=== PATIENT | male | born 1950 | race Caucasian/White ===

== ENCOUNTER 2020-02-16 08:51 | Emergency (ER) | payer MEDICARE, SELFPAY ==
[2020-02-16 09:43] VITALS: BP 163/95; PULSE 71; RESP 18; TEMP 36.9; O2SAT 99; BMI 23.5
--- NOTE | 2020-02-16 09:47 | ED.EAR ---
HPI - Ear Problem General Chief complaint: Ear Problems Stated complaint: facial swelling and rt ear pain Time Seen by Provider: 02/16/20 09:39 Source: patient Mode of arrival: ambulatory Limitations: no limitations History of Present Illness HPI Narrative: 70-year-old male here with right ear pain, decreased hearing x1 week. Trying [id number] wax softeners with continued symptoms. MD Complaint: ear pain and decreased hearing Location: right ear Duration: intermittent Severity: mild Relieving factors: nothing Exacerbating factors: nothing Discharge from ear: no Treatment prior to arrival: none Related Data Allergies Allergy/AdvReac Type Severity Reaction Status Date / Time No Known Allergies Allergy Verified 02/16/20 09:45 [No Known Allergies*] Review of Systems Review of Systems: Yes all other systems are reviewed and are negative Constitutional: Constitutional: Reports no additional constitutional complaints, Denies body ache(s), Denies chills, Denies fever(s), Denies headache(s) and Denies weakness Eyes: Eyes: Reports no additional eye complaints and Denies change in vision ENT: Reports system reviewed and no additional complaints, except as documented, Denies dizziness, Reports otalgia, Denies headache(s), Reports hearing loss, Denies nasal congestion, Denies nasal discharge and Denies neck pain Cardiovascular: Cardiovascular: Reports no additional cardiovascular complaints, Denies chest pain, Denies leg edema and Denies dyspnea Respiratory: Respiratory: Reports no additional respiratory complaints, Denies cough and Denies dyspnea Gastrointestinal: Gastrointestinal: Reports no additional gastrointestinal complaints, Denies abdominal pain, Denies diarrhea, Denies nausea and Denies vomiting Genitourinary: Genitourinary: Denies urinary incontinence Musculoskeletal: Musculoskeletal: Reports no additional musculoskeletal complaints, Denies back pain, Denies arthralgias, Denies joint swelling, Denies neck pain, Denies numbness and Denies tingling Integumentary/Breasts: Skin/Breast: Reports system reviewed and no additional complaints, except as docu and Denies rash Neurologic: Reports system reviewed and no additional complaints, except as documented, Denies Abnormal speech present, Denies dizziness, Denies headache(s), Denies numbness, Denies tingling and Denies weakness PMFSH Past Medical History Attestation statement: The following information was validated with the patient. Source: old records reviewed and nursing notes reviewed Medical History Cancer Social History Social History Advance Directives: No Advance Directives Information Provided: Yes Physical Exam Vital Signs: Vital Signs: Last Vital Signs Temp 98.4 F 02/16/20 09:43 Pulse 71 02/16/20 09:43 Resp 18 02/16/20 09:43 BP 163/95 H 02/16/20 09:43 Pulse Ox 99 02/16/20 09:43 Body Mass Index 23.5 Const: General: cooperative, healthy appearing, comfortable and no acute distress Orientation/consciousness: patient oriented x3 Limitations: no limitations HENMT: Other: Unable to visualize right TM and left TM. Cerumen impaction Head: Yes normal to inspection Ears: hearing grossly normal bilaterally General nose exam: Normal external nose present Face and sinus: Yes normal facial exam Mouth: Normal oral and palatal mucosa present Throat: Yes posterior oropharynx normal Eyes: General: appearance normal, both eyes and all related structures Pupils: Equal, round and reactive pupils present Neck: Neck: Yes normal visual inspection Chest: Chest palpation & inspection: normal inspection of the chest Resp: Effort & Inspection: normal respiratory effort Auscultation: clear to auscultation bilaterally Cardio: Rate: regular rate Rhythm: regular rhythm Peripheral pulses: Peripheral pulses 2+ throughout GI: Inspection: Yes normal to inspection Palpation (GI): Soft to palpation and nontender Auscultation: normal bowel sounds Back/Spine/Pelvis: Thoracic/Lumbar Spine: thoracic and lumbar spine normal to inspection Skin: General skin exam: no rashes or lesions noted Neuro: General: patient oriented x3, no focal motor deficits and normal sensation to monofilament Cranial nerves: Yes Equal, round and reactive pupils present Cognition (Neuro): normal cognition Speech: No Abnormal speech present Gait exam (Neuro): Normal gait present Motor exam (neuro): 5/5 motor strength present throughout Extrem: General: Yes normal to inspection Course Course Course Narrative: Bilateral cerumen impaction. No lymphadenopathy, TM is intact with no erythema. No mastoid tenderness. Improved his feelings after bilateral this impaction Reviewed follow-up with ENT. Reviewed worrisome signs and symptoms and when to return to the emergency department. Comfortable discharge home. Discharge Plan Discharge Clinical Impression: Bilateral impacted cerumen Patient Disposition: Home, Self-Care Instructions: Earache (ED) Additional Instructions: Both of your ears were impacted with cerumen Continue the wax softener daily Follow-up with with ear doctor as discussed ENT [address] Open now ? Referrals: Kathy Ambrose MD [Primary Care Provider] - 2 days Interventions: ED Discharge Assessment Last Done: 02/16/20 10:39 Discharge Date/Time: 02/16/20 10:39
== END 2020-02-16 10:39 | disposition home or self-care (01) ==
PROVIDERS: Emergency Provider Emergency Medicine; PCP Internal Medicine
DX: H92.01 Otalgia, right ear (principal); H61.23 Impacted cerumen, bilateral
CPT/HCPCS: 99283

== ENCOUNTER 2021-07-03 13:32 | Emergency (ER) | payer MEDICARE, SELFPAY ==
--- NOTE | ~2021-07-03 | CT_ITS ---
EXAMINATION: CT BRAIN AND CT CERVICAL SPINE WITHOUT CONTRAST. CLINICAL INFORMATION: Fall. COMPARISON: None TECHNIQUE: 5 mm thin axial and reformatted 2 mm thin coronal and sagittal images of brain were obtained. Subsequently axial 3 mm thin and reformatted 2 mm thin sagittal and coronal images of cervical spine were obtained. DLP 1032 FINDINGS: Brain: There is no acute intra-axial, extra-axial bleed, masses or midline shift. There is no acute infarct in evolution or edema. The mayfield to white matter difference is maintained normal. The lateral ventricles are symmetrical in size and configuration without enlargement. There is midline cavum septum pellucidum. There is diffuse periarticular hypodensity in both cerebral hemispheres likely chronic small vessel ischemic changes without edema. Bone windows reveal no calvarial abnormality. There is no scalp soft tissue abnormality either. Bilateral paranasal sinuses and mastoids are well-aerated with mild mucoperiosteal thickening right sphenoid sinuses. The bony orbits and optic globe intact. There is likely right dense cataract and bilateral scleral miley Cervical spine: There is mild straightening of cervical lordosis. The vertebral heights and alignment is normal. There is severe loss of C5-C6 and C6-C7 disc heights with endplate changes and mild ventral and posterior spondylosis. Rest of the disc heights are normal. There cranial vertebral junction and the C1-C2 alignment is normal. No visible acute fracture, dislocation or subluxation seen. The prevertebral and paravertebral soft tissues are normal. CT/CT cervical spine wo con IMPRESSION: No acute intracranial process seen. Chronic right sphenoid sinusitis. Mild straightening of cervical lordosis with degenerative disc changes and spondylosis and endplate changes C5-C6 and C6-C7 disc levels. No acute fracture or dislocation seen.
--- NOTE | ~2021-07-03 | XR_ITS ---
EXAMINATION: XR CHEST CLINICAL INFORMATION: Pneumonia COMPARISON: Chest radiograph 04/19/2015 TECHNIQUE: Frontal view of the chest was obtained. FINDINGS: Aside from hypoinflation, no significant abnormality is noted involving the heart, lungs, mediastinum, bony thorax or soft tissues. XR/XR chest 1V IMPRESSION: Hypoinflated lungs. No acute intrathoracic disease.
--- NOTE | ~2021-07-03 | XR_ITS ---
EXAMINATION: XR KNEE, RIGHT CLINICAL INFORMATION: Right knee pain after fall COMPARISON: None TECHNIQUE: Four views of the right knee. FINDINGS: Mild degenerative changes are present with narrowing in medial compartment. No chondrocalcinosis is seen. No fractures are seen. No knee joint effusion detected. Vascular calcifications are present. XR/XR knee RT 4V IMPRESSION: Mild degenerative changes with narrowing of medial compartment. No acute finding.
--- NOTE | 2021-07-03 15:25 | ED.FALL ---
HPI - Fall General Stated Complaint: R KNEE PAIN/SWELLING S/P FALL IN BR Time Seen by Provider: 07/03/21 15:27 Source: patient Mode of arrival: ambulatory Limitations: no limitations History of Present Illness HPI Narrative: 71-year-old male with history of cancer presents to ED for fall. As per EMS patient was getting up from the toilet after using the bathroom and slipped on the wet floor and fell onto his knee. Daughter was present and denies patient hitting head or loss of consciousness. Patient is not any blood thinners. Related Data Allergies Allergy/AdvReac Type Severity Reaction Status Date / Time No Known Allergies Allergy Verified 02/16/20 09:45 [No Known Allergies*] Review of Systems Review of Systems: Knee pain. Yes all other systems are reviewed and are negative PMFSH Past Medical History Medical History Cancer Social History Social History Advance Directives: No Advance Directives Information Provided: No Physical Exam Vital Signs: Vital Signs: Last Vital Signs Temp 98.3 F 07/03/21 16:53 Pulse 82 07/03/21 16:53 Resp 17 07/03/21 16:53 BP 143/79 H 07/03/21 16:53 Pulse Ox 98 07/03/21 16:53 Const: General: cooperative, healthy appearing, comfortable, no acute distress, well developed, alert, awake and Physically active Orientation/consciousness: patient oriented x3 HEENT: Head: Yes normal to inspection, Yes No palpable skull fracture present, Yes normocephalic, Yes atraumatic and No abrasion Ears: hearing grossly normal bilaterally, external ears normal, TM's normal bilaterally, TM normal on the right, TM normal on the left, EAC's normal, mastoids normal, no periauricular adenopathy and normal EAC's Eyes: General: appearance normal, both eyes and all related structures Neck: Neck: Yes normal visual inspection, Yes full ROM, Yes no lymphadenopathy, Yes no meningeal signs, Yes trachea midline, Yes supple, No anterior neck swelling and No tender Chest: Chest palpation & inspection: normal inspection of the chest and normal palpation of entire chest wall Resp: Effort & Inspection: normal respiratory effort and able to speak in complete sentences Auscultation: clear to auscultation bilaterally Cardio: Jugular venous distension: no JVD Heart sounds: S1 normal heart sound present and S2 normal heart sound present GI: Inspection: Yes normal to inspection and No abdominal wall ecchymosis Palpation (GI): Soft to palpation, not firm, nontender, no guarding and not rigid : General: No CVA tenderness and Yes no CVA tenderness Back/Spine/Pelvis: Back: no CVA tenderness, No CVA tenderness and No back tenderness Skin: General skin exam: no rashes or lesions noted and elasticity normal Neuro: General: patient oriented x3, gait normal, no meningeal signs and CN's II-XI intact bilaterally Cranial nerves: Yes CN's II-XII intact bilaterally Extrem: General: Yes normal to inspection and Yes full ROM Upper/lower leg/hip images: 1. positive for tenderness. Negative for any ecchymosis, crepitus, or deformity. Negative for warmth. Patient has complete range of motion of knee but with pain. Psych: Appearance: grossly normal, well kempt and not disheveled Course Course Course Narrative: X-ray of knee ordered. Head CT cervical spine CT ordered. Although patient denies any head trauma due to age head CT cervical spine ordered. mechanical fall. No need for any EKG or labs. Reevaluation(s) Reevaluation #1: Images normal. Patient is safe for discharge. patient able to ambulate on his own with walker which is baseline. Time: 17:24 MDM - Fall MDM Narrative Medical decision making narrative: fall Discharge Plan Discharge Clinical Impression: Fall, Contusion Patient Disposition: Home, Self-Care Additional Instructions: return to the ED for any headache, nausea, vomiting, chest pain, shortness of breath, abdominal pain, chest pain, vomiting blood, bloody urine, flank pain, rectal bleeding, or any other concerning symptoms. Please follow-up primary care provider. Print Language: Surinamese
[2021-07-03 16:53] VITALS: BP 143/79; PULSE 82; RESP 17; TEMP 36.8; O2SAT 98
[2021-07-03 17:27] VITALS: BP 138/66; PULSE 102; O2SAT 100; BMI 21.9
--- NOTE | 2021-07-03 18:26 | ECG_ITS ---
Test Reason : FALL Blood Pressure : / mmHG Vent. Rate : 080 BPM Atrial Rate : 080 BPM P-R Int : 150 ms QRS Dur : 096 ms QT Int : 418 ms P-R-T Axes : 041 -34 018 degrees QTc Int : 482 ms Normal sinus rhythm with sinus arrhythmia Left axis deviation Nonspecific ST abnormality Prolonged QT Abnormal ECG When compared with ECG of 19-APR-2015 07:34, Significant changes have occurred Referred By: Spenser Huertas Electronically Signed By:Darío Mo
[2021-07-03 20:30] VITALS: BP 148/86; PULSE 78; TEMP 37.2; O2SAT 97
[2021-07-03 20:35] LABS: MANUAL DIFF FLAG NO
[2021-07-03 20:36] LABS: Basophils Percent Auto 0.2 % (0-2); Hematocrit 27.1 % (42.0-52.0); Hemoglobin 8.9 g/dl (14.0-18.0); Imm Gran Abs Auto 0.01 X10*3/uL (0.00-0.03); Imm Gran Pct Auto 0.2 % (0.0-0.4); Lymphocytes Percent Auto 16.1 % (20-40); Mean Corpuscular HGB Conc 32.8 g/dl (31.0-36.0); Mean Corpuscular Hemoglobin 25.3 pg (27.0-33.0); Mean Platelet Volume 11.2 fL (9.4-12.4); Monocytes Absolute Auto 0.5 X10*3/uL (0.1-1.2); Monocytes Percent Auto 7.2 % (2-11); Neutrophils Absolute Auto 4.8 x10*3/uL (2.0-8.3); Neutrophils Percent Auto 76.3 % (45-73); Platelet Count 178 X10*3/uL (160-400); Red Blood Count 3.52 X10*6/uL (4.60-5.80); Red Cell Distribution Width 15.8 % (11.0-16.0); White Blood Count 6.2 X10*3/uL (4.8-10.8)
[2021-07-03 20:42] LABS: Appearance Urine HAZY; Color Urine YELLOW; Glucose Urine UA NEG (NEG); Leukocyte Esterase Urine NEG (NEG); Nitrite Urine POS (NEG); UACC Culture Trigger YES; Urine Blood TRACE (NEG); Urine Ketones 5 MG/DL (NEG); Urine Protein NEG (NEG-TRACE)
[2021-07-03 20:42] LABS: INTERNATIONAL NORM RATIO 1.1 (0.9-1.1); Prothrombin Time 12.1 SEC (9.9-13.0)
[2021-07-03 20:45] LABS: Partial Thromboplastin Time 30.8 SEC (24.1-38.0)
[2021-07-03 20:53] LABS: Bacteria Urine 4+ /LPF; Mucus Urine TRACE /LPF; Renal Epithelial Cells Urine 2+ /LPF; Squamous Epithelial Cell Urine TRACE /LPF; WBC Clumps Urine NOTED
[2021-07-03 20:55] LABS: Alanine Aminotransferase 12 U/L (0-40); Albumin Level 4.4 g/dL (3.5-5.0); Alkaline Phosphatase 65 U/L (39-117); Anion Gap 13 (12-20); Aspartate Amino Transferase 19 U/L (5-37); Bilirubin Total 0.8 mg/dL (0.0-1.0); Blood Urea Nitrogen 13 mg/dL (9-16); Calcium 9.7 mg/dL (8.4-10.2); Carbon Dioxide 29 mmol/L (22-29); Chloride 96 mmol/L (96-108); Creatinine Clr Calc Pharmacy 75.9; Estimated Glomerular Filt Rate > 60; Glucose Random 152 mg/dL (60-115); Potassium 3.3 mmol/L (3.3-5.1); Sodium 135 mmol/L (135-145)
[2021-07-03 20:58] LABS: Troponin-I High Sensitivity 9.9 ng/L (<3.5-35.0)
[2021-07-03 22:37] VITALS: BP 135/85; PULSE 79; RESP 17; TEMP 37.3; O2SAT 98
[2021-07-04 01:18] LABS: Hematocrit 26.8 % (42.0-52.0); Hemoglobin 8.9 g/dl (14.0-18.0); Mean Corpuscular HGB Conc 33.2 g/dl (31.0-36.0); Mean Corpuscular Hemoglobin 25.4 pg (27.0-33.0); Mean Corpuscular Volume 76.4 fL (80.0-98.0); Mean Platelet Volume 9.4 fL (9.4-12.4); Platelet Count 166 X10*3/uL (160-400); Red Blood Count 3.51 X10*6/uL (4.60-5.80); Red Cell Distribution Width 15.7 % (11.0-16.0); White Blood Count 5.6 X10*3/uL (4.8-10.8)
[2021-07-04 02:12] VITALS: BP 126/84; PULSE 77; RESP 16; O2SAT 97
[2021-07-04] MEDS: cefTRIAXone sodium 1 GM in 0.9 % Sodium Chloride 50 ML IV (02:13)
[2021-07-04 06:00] VITALS: BP 130/86; PULSE 75; RESP 16; TEMP 36.5; O2SAT 98
--- NOTE | 2021-07-04 06:22 | PC.NURSE ---
Per Laina FLOOR MECHANIC, pt seems confused, disoriented this morning. Ari CANDELARIO will assess pt with in house dinkey motor operator
[2021-07-04 07:30] VITALS: BP 130/86; PULSE 75; O2SAT 98
--- NOTE | 2021-07-04 10:51 | MHC.CM.ED ---
Received case management consult overnight. Patient came to ER after falling in the bathroom. Work up is essentially negative. Physical therapy eval completed. Home therapy is recommended. Met with patient in regards to discharge planning. Patient lives with his girlfriend Geri, ambulates independently and had no services prior to coming to the ER. Patient doesn't believe he has a PCP. Patient received 2 Pfizer vaccines. Spoke with patient's daughter, Olive, via telephone at [phone]. Patient's PCP is Dr Ambrose. She has a copy of patient's HCP. T/W is attempting to obtain a copy. Olive agreeable to referral to Cath[facility] SHEPHERD. Referral made via [facility]. Olive will be at the ER around 1130am to transport her father home. Patient, Juana CANDELARIO and Ariana FOREMAN aware. Continue to monitor for d/c needs.
[2021-07-04 11:17] LABS: Influenza A PCR NEGATIVE (Negative); Influenza B PCR NEGATIVE (Negative); Resp Syncy Virus RNA Qual PCR NEGATIVE (Negative); SARS COV2 PCR INHOUSE NEGATIVE (Negative)
== END 2021-07-04 11:26 | disposition home or self-care (01) ==
PROVIDERS: Emergency Medicine; Physician Assistant; Emergency Provider Emergency Medicine; PCP Internal Medicine
DX: S80.01XA Contusion of right knee, initial encounter (principal); W18.39XA Other fall on same level, initial encounter; N39.0 Urinary tract infection, site not specified; C61 Malignant neoplasm of prostate; Y93.89 Activity, other specified; Y92.031 Bathroom in apartment as the place of occurrence of the external cause; Y99.8 Other external cause status; Z20.822 Contact with and (suspected) exposure to COVID-19
CPT/HCPCS: 0241U; 36415; 70450; 71045; 72125; 73564; 80053; 81001; 82550; 84484; 85025; 85027; 85610; 85730; 87086; 87088; 87186; 93005; 96365; 97162; 99284; J0696